=== PATIENT | male | born 2000 | race Caucasian/White ===

== ENCOUNTER 2024-09-22 12:16 | Emergency (ER) | payer OTHER ==
[~2024-09-22] VITALS: Ht 180.3 cm; Wt 109.1 kg
[2024-09-22 12:29] VITALS: BP 124/80; PULSE 68; RESP 18; TEMP 97.9; O2SAT 99
[2024-09-22] MEDS: LIDOCAINE 1% 10 ML VIAL SQ ONE (12:48)
[2024-09-22] MEDS: PERTUSS(ACELL),DIPH,TET/PF 0.5 ML SYRINGE [ADULT] IM. ONE (12:49)
[2024-09-22] MEDS ORDERED: CEPH-558 PO (13:42)
[2024-09-22] MEDS ORDERED: IBUP-1492 PO (13:42)
== END 2024-09-22 13:50 | disposition home or self-care (01) ==
LOC: EMS 12:17
DX: S61.012A Laceration without foreign body of left thumb without damage to nail, initial encounter (principal); W26.0XXA Contact with knife, initial encounter; Y93.89 Activity, other specified; Y92.89 Other specified places as the place of occurrence of the external cause; Y99.0 Civilian activity done for income or pay
CPT/HCPCS: 99283; 90715; 90471; 12001; J3490

== ENCOUNTER 2024-09-26 11:45 | Emergency (ER) | payer OTHER ==
[~2024-09-26] VITALS: Ht 180.3 cm; Wt 120.0 kg
[~2024-09-26 11:45] MED LIST: CEPH-558 PO; IBUP-1492 PO
[2024-09-26 11:53] VITALS: BP 132/71; PULSE 61; RESP 15; TEMP 97.8; O2SAT 99
== END 2024-09-26 12:41 | disposition home or self-care (01) ==
LOC: EMS 11:46
DX: S61.012A Laceration without foreign body of left thumb without damage to nail, initial encounter (principal); X58.XXXA Exposure to other specified factors, initial encounter; Y93.89 Activity, other specified; Y92.89 Other specified places as the place of occurrence of the external cause; Y99.8 Other external cause status
CPT/HCPCS: 99282; Z7502

== ENCOUNTER 2024-09-30 13:24 | Emergency (ER) | payer OTHER ==
[~2024-09-30] VITALS: Ht 180.3 cm; Wt 120.0 kg
[2024-09-30 13:37] VITALS: TEMP 98
[2024-09-30 14:29] VITALS: BP 128/69; PULSE 75; RESP 18; O2SAT 98
== END 2024-09-30 14:30 | disposition home or self-care (01) ==
LOC: EMS 13:34
DX: S61.012D Laceration without foreign body of left thumb without damage to nail, subsequent encounter (principal); Z48.02 Encounter for removal of sutures; X58.XXXD Exposure to other specified factors, subsequent encounter
CPT/HCPCS: 99281; Z7502